=== PATIENT | male | born 1995 | race African-American/Black ===

== ENCOUNTER 2018-01-29 15:58 | Observation (INO) ==
--- NOTE | 2018-01-29 16:09 | Emergency Department Note ---
Disposition Clinical Impression: Auditory hallucinations, Medical clearance for psychiatric admission Disposition: Admitted As Inpatient Condition: Fair Referrals: NONE,PCP [Primary Care Provider] - Forms: ED Satisfaction Letter Time of Disposition: 20:26 Psych HPI - General Chief Complaint: ED Psychiatric Symptoms Stated Complaint: SI Time Seen by Provider: 01/29/18 16:00 Source: patient Mode of arrival: ambulatory Limitations: no limitations Nursing Notes Reviewed: Yes Vital Signs Reviewed: Yes - History of Present Illness HPI Narrative: 22-year-old male with history of ADHD on Adderall, [place] the emergency department with complaint of visual, auditory hallucinations. No command hallucinations. The patient denies any suicidal or homicidal ideations at this time. The patient states that he has been out of his medications for months now. The patient is very worried and wants to get evaluated. The patient does have a previous psychiatric admission. Denies any other complaints at this time. Resting comfortably in the room. - Related Data Allergies Allergy/AdvReac Type Severity Reaction Status Date / Time No Known Allergies Allergy Verified 01/29/18 16:04 All systems ED: reviewed and negative except as stated. Constitutional: Denies: fever, chills ENT ED: Denies: congestion Cardiovascular: Denies: chest pain Respiratory: Denies: dyspnea Gastrointestinal: Denies: abdominal pain Genitourinary: Denies: urgency Musculoskeletal: Denies: back pain Integumentary: Denies: rash Neurological: Denies: headache Psychiatric: Reports: anxiety, auditory hallucinations, visual hallucinations. Denies: depression, suicidal thoughts, homicidal thoughts Past Medical History - Past Medical History Attestation: Yes The following information was validated with the patient. Source: patient Medical history: Reports: no medical history Surgical history: Reports: non-contributory Psychiatric history: Reports: ADHD, previous psychiatric hospitalization - Social History Smoking Status: Current every day smoker Alcohol use: Reports: none Drug use: Reports: none Physical Exam - General Limitations: no limitations General appearance: alert, in no apparent distress - Head Head exam: atraumatic, normocephalic, normal inspection - Eye Eye exam: Present: normal appearance, PERRL, EOMI - ENT ENT exam: normal exam, normal oropharynx, mucous membranes moist - Neck Neck exam: Present: normal inspection, full ROM, trachea midline - Chest Chest inspection: Present: normal inspection, symmetric chest wall rise - Respiratory Respiratory exam: Present: normal lung sounds bilaterally - Cardiovascular Cardiovascular exam: Present: regular rate, normal rhythm, normal heart sounds - Abdominal Exam Abdominal exam: Present: soft, Non-Tender - Extremities Exam Extremities exam: Present: normal inspection, full ROM. Absent: tenderness, pedal edema - Neurological Exam Neurological exam: Present: alert, oriented X3 - Skin Skin exam: Present: warm, dry, intact, normal color Course - Reevaluation(s) Reevaluation #1: 1A notified and will see patient. Time: 17:06 Vital Signs Temperature 98.3 F 01/29/18 16:00 Pulse Rate 90 01/29/18 16:00 Respiratory Rate 16 01/29/18 16:00 Blood Pressure 135/86 01/29/18 16:00 O2 Sat by Pulse Oximetry 99 01/29/18 16:00 Temperature 98.3 F 01/29/18 16:00 Pulse Rate 85 01/29/18 19:27 Respiratory Rate 16 01/29/18 19:27 Blood Pressure 133/87 01/29/18 19:27 O2 Sat by Pulse Oximetry 100 01/29/18 19:27 Oxygen Delivery Oxygen Delivery Room Air Psych - MDM Narrative Medical decision making narrative: Patient was medically cleared at this time. One a will be admitting the patient to the hospital for further care and workup. Patient made aware and agrees to plan. - Lab Data Result diagrams: 01/29/18 16:29 01/29/18 16:29 Lab Results 01/29/18 01/29/18 01/29/18 Range/Units 16:16 16:16 16:29 WBC 6.6 (4.3-11.1) K/mcL RBC 5.36 (4.19-5.50) M/mcL Hgb 15.6 (12.9-16.9) g/dL Hct 46.1 (37.5-50.1) % MCV 86.0 (83.0-100.0) fL MCH 29.1 (28.0-33.3) pg MCHC 33.8 (31.6-35.5) g/dL RDW 12.9 (11.5-14.5) % Plt Count 261 (140-400) K/mcL MPV 9.2 L (9.4-12.4) fL Immature Gran % 0.2 (0-4) % Seg Neutrophils % 47.6 % Lymphocytes % 39.9 % Monocytes % 8.2 % Eosinophils % 3.0 % Basophils % 1.1 % Neutrophils # 3.1 (1.6-8.9) K/mcL Lymphocytes # 2.6 (0.6-4.6) K/mcL Monocytes # 0.5 (0.0-1.3) K/mcL Eosinophils # 0.2 (0.0-0.6) K/mcL Basophils # 0.1 (0.0-0.2) K/mcL Sodium (136-145) mEq/L Potassium (3.5-5.1) mEq/L Chloride (98-107) mEq/L Carbon Dioxide (23-29) mEq/L BUN (6-20) mg/dL Creatinine (0.70-1.30) mg/dL Est GFR ( Amer) (> 60) Est GFR (Non-Af Amer) (> 60) BUN/Creatinine Ratio (6-26) Glucose (70-105) mg/dL Calculated Osmolality (280-300) Calcium (8.6-10.3) mg/dL Urine Color Yellow (Yellow) Urine Clarity Clear (Clear) Urine pH 6.0 (5.0-8.0) pH Units Ur Specific [place] 1.020 (1.010-1.025) Urine Protein Negative (Neg-Trace) mg/dL Urine Glucose (UA) Normal (Normal) mg/dL Urine Ketones Trace H (Negative) mg/dL Urine Blood Negative (Negative) Urine Nitrite Negative (Negative) Urine Bilirubin Negative (Negative) Urine Urobilinogen Normal (Normal) mg/dL Ur Leukocyte Esterase Negative (Negative) Salicylates (15.0-30.0) mg/dL Urine Opiates Screen Negative (Qxfjic=090) ng/mL Acetaminophen (10-20) mcg/mL Ur Barbiturates Screen Negative (Cjtvjc=233) ng/mL Ur Phencyclidine Scrn Negative (Cutoff=25) ng/mL Ur Amphetamines Screen Negative (Fqdrms=3569) ng/mL U Benzodiazepines Scrn Negative (Djqlag=813) ng/mL Urine Cocaine Screen Negative (Cutoff= 300) ng/mL U Marijuana (THC) Screen Negative (Cutoff = 50) ng/mL Ethyl Alcohol (Less than 10) mg/dL 01/29/18 01/29/18 Range/Units 16:29 19:02 WBC (4.3-11.1) K/mcL RBC (4.19-5.50) M/mcL Hgb (12.9-16.9) g/dL Hct (37.5-50.1) % MCV (83.0-100.0) fL MCH (28.0-33.3) pg MCHC (31.6-35.5) g/dL RDW (11.5-14.5) % Plt Count (140-400) K/mcL MPV (9.4-12.4) fL Immature Gran % (0-4) % Seg Neutrophils % % Lymphocytes % % Monocytes % % Eosinophils % % Basophils % % Neutrophils # (1.6-8.9) K/mcL Lymphocytes # (0.6-4.6) K/mcL Monocytes # (0.0-1.3) K/mcL Eosinophils # (0.0-0.6) K/mcL Basophils # (0.0-0.2) K/mcL Sodium 140 (136-145) mEq/L Potassium 3.5 (3.5-5.1) mEq/L Chloride 108 H (98-107) mEq/L Carbon Dioxide 27 (23-29) mEq/L BUN 10 (6-20) mg/dL Creatinine 1.11 (0.70-1.30) mg/dL Est GFR ( Amer) > 60 (> 60) Est GFR (Non-Af Amer) > 60 (> 60) BUN/Creatinine Ratio 9 (6-26) Glucose 107 H (70-105) mg/dL Calculated Osmolality 290 (280-300) Calcium 9.0 (8.6-10.3) mg/dL Urine Color (Yellow) Urine Clarity (Clear) Urine pH (5.0-8.0) pH Units Ur Specific [place] (1.010-1.025) Urine Protein (Neg-Trace) mg/dL Urine Glucose (UA) (Normal) mg/dL Urine Ketones (Negative) mg/dL Urine Blood (Negative) Urine Nitrite (Negative) Urine Bilirubin (Negative) Urine Urobilinogen (Normal) mg/dL Ur Leukocyte Esterase (Negative) Salicylates < 10.0 L (15.0-30.0) mg/dL Urine Opiates Screen Negative (Xrlybs=802) ng/mL Acetaminophen < 10 L (10-20) mcg/mL Ur Barbiturates Screen Negative (Ltfbhp=041) ng/mL Ur Phencyclidine Scrn Negative (Cutoff=25) ng/mL Ur Amphetamines Screen Negative (Wwtbcm=4782) ng/mL U Benzodiazepines Scrn Negative (Pwiufr=723) ng/mL Urine Cocaine Screen Negative (Cutoff= 300) ng/mL U Marijuana (THC) Screen Negative (Cutoff = 50) ng/mL Ethyl Alcohol < 10 (Less than 10) mg/dL Psychiatric Medical Clearance - Medical Clearance Checklist Medical History: Auditory hallucinations (Acute) No Social History Section defined Current Vitals: Last Vital Signs Temp 98.3 F 01/29/18 16:00 Pulse 85 01/29/18 19:27 Resp 16 01/29/18 19:27 BP 133/87 01/29/18 19:27 Pulse Ox 100 01/29/18 19:27 Psychiatric Lab Panel: Drug Levels and Toxicity 01/29/18 01/29/18 01/29/18 16:16 16:29 19:02 Urine Opiates Screen Negative Negative Acetaminophen < 10 L Ur Barbiturates Screen Negative Negative Ur Phencyclidine Scrn Negative Negative Ur Amphetamines Screen Negative Negative U Benzodiazepines Scrn Negative Negative Urine Cocaine Screen Negative Negative U Marijuana (THC) Screen Negative Negative Ethyl Alcohol < 10 Abnormal Labs: Abnormal lab results MPV 9.2 fL (9.4-12.4) L 01/29/18 16:29 Chloride 108 mEq/L (98-107) H 01/29/18 16:29 Glucose 107 mg/dL (70-105) H 01/29/18 16:29 Urine Ketones Trace mg/dL (Negative) H 01/29/18 16:16 Salicylates < 10.0 mg/dL (15.0-30.0) L 01/29/18 16:29 Acetaminophen < 10 mcg/mL (10-20) L 01/29/18 16:29 Statement of Medical Clearance: I have evaluated the patient, reviewed diagnostic information, and certify that the patient's medical condition is sufficiently stable that transfer to the psychiatric unit does not pose a significant risk of deterioration.
[2018-01-29 16:35] LABS: Bilirubin,Urine Negative (Negative); Blood,Urine Negative (Negative); Clarity,Urine Clear (Clear); Color,Urine Yellow (Yellow); Glucose,Urine (UA) Normal (Normal); Ketones,Urine Trace mg/dL (Negative); Leukocyte Esterase,Urine Negative (Negative); Nitrite,Urine Negative (Negative); Protein,Urine Negative (Neg-Trace); Urobilinogen,Urine Normal (Normal)
[2018-01-29 16:42] LABS: Basophils # 0.1 K/mcL (0.0-0.2); Basophils % 1.1 %; Eosinophils # 0.2 K/mcL (0.0-0.6); Hematocrit 46.1 % (37.5-50.1); Hemoglobin 15.6 g/dL (12.9-16.9); Immature Granulocytes % 0.2 % (0-4); Lymphocytes # 2.6 K/mcL (0.6-4.6); Lymphocytes % 39.9 %; Mean Corpuscular HGB Conc 33.8 g/dL (31.6-35.5); Mean Corpuscular Hemoglobin 29.1 pg (28.0-33.3); Mean Platelet Volume 9.2 fL (9.4-12.4); Monocytes # 0.5 K/mcL (0.0-1.3); Monocytes % 8.2 %; Neutrophils # 3.1 K/mcL (1.6-8.9); Platelet Count 261 K/mcL (140-400); Red Blood Count 5.36 M/mcL (4.19-5.50); Red Cell Distribution Width 12.9 % (11.5-14.5); Segmented Neutrophils % 47.6 %
[2018-01-29 16:44] LABS: Amphetamine Screen,Urine Negative ng/mL (Cutoff=1000); Barbiturate Screen,Urine Negative ng/mL (Cutoff=200); Benzodiazepines Screen,Urine Negative ng/mL (Cutoff=200); Cannabinoid Screen,Urine Negative ng/mL (Cutoff = 50); Cocaine Screen,Urine Negative ng/mL (Cutoff= 300); Opiate Screen,Urine Negative ng/mL (Cutoff=300); Phencyclidine Screen,Urine Negative ng/mL (Cutoff=25)
[2018-01-29 17:02] LABS: Acetaminophen < 10 mcg/mL (10-20); BUN/Creatinine Ratio 9 (6-26); Blood Urea Nitrogen 10 mg/dL (6-20); Carbon Dioxide 27 mEq/L (23-29); Chloride 108 mEq/L (98-107); Ethanol < 10 mg/dL (Less than 10); Glucose 107 mg/dL (70-105); Osmolality,Calculated 290 (280-300); Potassium 3.5 mEq/L (3.5-5.1); Salicylate < 10.0 mg/dL (15.0-30.0); Sodium 140 mEq/L (136-145); eGFR For African Americans > 60 (> 60); eGFR For Non-African Americans > 60 (> 60)
--- NOTE | 2018-01-29 19:00 | Emergency Department Note ---
Disposition Clinical Impression: Auditory hallucinations Disposition: Still a Patient Condition: Fair Referrals: NONE,PCP [Primary Care Provider] - Forms: ED Satisfaction Letter Psych HPI - General Chief Complaint: ED Psychiatric Symptoms Stated Complaint: SI Time Seen by Provider: 01/29/18 16:00 Source: patient Mode of arrival: ambulatory Limitations: no limitations Nursing Notes Reviewed: Yes Vital Signs Reviewed: Yes - Related Data Allergies Allergy/AdvReac Type Severity Reaction Status Date / Time No Known Allergies Allergy Verified 01/29/18 16:04 Constitutional: Denies: fever, chills ENT ED: Denies: congestion Cardiovascular: Denies: chest pain Respiratory: Denies: dyspnea Gastrointestinal: Denies: abdominal pain Genitourinary: Denies: urgency Musculoskeletal: Denies: back pain Integumentary: Denies: rash Neurological: Denies: headache Psychiatric: Reports: anxiety, auditory hallucinations, visual hallucinations. Denies: depression, suicidal thoughts, homicidal thoughts Past Medical History - Past Medical History Medical history: Reports: no medical history Surgical history: Reports: non-contributory Psychiatric history: Reports: ADHD, previous psychiatric hospitalization - Social History Smoking Status: Current every day smoker Alcohol use: Reports: none Drug use: Reports: none Physical Exam - General Limitations: no limitations General appearance: alert, in no apparent distress Course Vital Signs Temperature 98.3 F 01/29/18 16:00 Pulse Rate 90 01/29/18 16:00 Respiratory Rate 16 01/29/18 16:00 Blood Pressure 135/86 01/29/18 16:00 O2 Sat by Pulse Oximetry 99 01/29/18 16:00 Temperature 98.3 F 01/29/18 16:00 Pulse Rate 90 01/29/18 16:00 Respiratory Rate 16 01/29/18 16:00 Blood Pressure 135/86 01/29/18 16:00 O2 Sat by Pulse Oximetry 99 01/29/18 16:00 Oxygen Delivery Oxygen Delivery Room Air Psych - Lab Data Result diagrams: 01/29/18 16:29 01/29/18 16:29 Lab Results 01/29/18 01/29/18 01/29/18 Range/Units 16:16 16:16 16:29 WBC 6.6 (4.3-11.1) K/mcL RBC 5.36 (4.19-5.50) M/mcL Hgb 15.6 (12.9-16.9) g/dL Hct 46.1 (37.5-50.1) % MCV 86.0 (83.0-100.0) fL MCH 29.1 (28.0-33.3) pg MCHC 33.8 (31.6-35.5) g/dL RDW 12.9 (11.5-14.5) % Plt Count 261 (140-400) K/mcL MPV 9.2 L (9.4-12.4) fL Immature Gran % 0.2 (0-4) % Seg Neutrophils % 47.6 % Lymphocytes % 39.9 % Monocytes % 8.2 % Eosinophils % 3.0 % Basophils % 1.1 % Neutrophils # 3.1 (1.6-8.9) K/mcL Lymphocytes # 2.6 (0.6-4.6) K/mcL Monocytes # 0.5 (0.0-1.3) K/mcL Eosinophils # 0.2 (0.0-0.6) K/mcL Basophils # 0.1 (0.0-0.2) K/mcL Sodium (136-145) mEq/L Potassium (3.5-5.1) mEq/L Chloride (98-107) mEq/L Carbon Dioxide (23-29) mEq/L BUN (6-20) mg/dL Creatinine (0.70-1.30) mg/dL Est GFR ( Amer) (> 60) Est GFR (Non-Af Amer) (> 60) BUN/Creatinine Ratio (6-26) Glucose (70-105) mg/dL Calculated Osmolality (280-300) Calcium (8.6-10.3) mg/dL Urine Color Yellow (Yellow) Urine Clarity Clear (Clear) Urine pH 6.0 (5.0-8.0) pH Units Ur Specific [place] 1.020 (1.010-1.025) Urine Protein Negative (Neg-Trace) mg/dL Urine Glucose (UA) Normal (Normal) mg/dL Urine Ketones Trace H (Negative) mg/dL Urine Blood Negative (Negative) Urine Nitrite Negative (Negative) Urine Bilirubin Negative (Negative) Urine Urobilinogen Normal (Normal) mg/dL Ur Leukocyte Esterase Negative (Negative) Salicylates (15.0-30.0) mg/dL Urine Opiates Screen Negative (Azasqj=799) ng/mL Acetaminophen (10-20) mcg/mL Ur Barbiturates Screen Negative (Uveryz=624) ng/mL Ur Phencyclidine Scrn Negative (Cutoff=25) ng/mL Ur Amphetamines Screen Negative (Wmilpu=2307) ng/mL U Benzodiazepines Scrn Negative (Kftcyb=194) ng/mL Urine Cocaine Screen Negative (Cutoff= 300) ng/mL U Marijuana (THC) Screen Negative (Cutoff = 50) ng/mL Ethyl Alcohol (Less than 10) mg/dL 01/29/18 Range/Units 16:29 WBC (4.3-11.1) K/mcL RBC (4.19-5.50) M/mcL Hgb (12.9-16.9) g/dL Hct (37.5-50.1) % MCV (83.0-100.0) fL MCH (28.0-33.3) pg MCHC (31.6-35.5) g/dL RDW (11.5-14.5) % Plt Count (140-400) K/mcL MPV (9.4-12.4) fL Immature Gran % (0-4) % Seg Neutrophils % % Lymphocytes % % Monocytes % % Eosinophils % % Basophils % % Neutrophils # (1.6-8.9) K/mcL Lymphocytes # (0.6-4.6) K/mcL Monocytes # (0.0-1.3) K/mcL Eosinophils # (0.0-0.6) K/mcL Basophils # (0.0-0.2) K/mcL Sodium 140 (136-145) mEq/L Potassium 3.5 (3.5-5.1) mEq/L Chloride 108 H (98-107) mEq/L Carbon Dioxide 27 (23-29) mEq/L BUN 10 (6-20) mg/dL Creatinine 1.11 (0.70-1.30) mg/dL Est GFR ( Amer) > 60 (> 60) Est GFR (Non-Af Amer) > 60 (> 60) BUN/Creatinine Ratio 9 (6-26) Glucose 107 H (70-105) mg/dL Calculated Osmolality 290 (280-300) Calcium 9.0 (8.6-10.3) mg/dL Urine Color (Yellow) Urine Clarity (Clear) Urine pH (5.0-8.0) pH Units Ur Specific [place] (1.010-1.025) Urine Protein (Neg-Trace) mg/dL Urine Glucose (UA) (Normal) mg/dL Urine Ketones (Negative) mg/dL Urine Blood (Negative) Urine Nitrite (Negative) Urine Bilirubin (Negative) Urine Urobilinogen (Normal) mg/dL Ur Leukocyte Esterase (Negative) Salicylates < 10.0 L (15.0-30.0) mg/dL Urine Opiates Screen (Igmjml=590) ng/mL Acetaminophen < 10 L (10-20) mcg/mL Ur Barbiturates Screen (Suenxw=088) ng/mL Ur Phencyclidine Scrn (Cutoff=25) ng/mL Ur Amphetamines Screen (Pzkmhg=1675) ng/mL U Benzodiazepines Scrn (Qdbavm=059) ng/mL Urine Cocaine Screen (Cutoff= 300) ng/mL U Marijuana (THC) Screen (Cutoff = 50) ng/mL Ethyl Alcohol < 10 (Less than 10) mg/dL Psychiatric Medical Clearance - Medical Clearance Checklist Medical History: No Social History Section defined Current Vitals: Last Vital Signs Temp 98.3 F 01/29/18 16:00 Pulse 90 01/29/18 16:00 Resp 16 01/29/18 16:00 BP 135/86 01/29/18 16:00 Pulse Ox 99 01/29/18 16:00 Psychiatric Lab Panel: Drug Levels and Toxicity 01/29/18 01/29/18 16:16 16:29 Urine Opiates Screen Negative Acetaminophen < 10 L Ur Barbiturates Screen Negative Ur Phencyclidine Scrn Negative Ur Amphetamines Screen Negative U Benzodiazepines Scrn Negative Urine Cocaine Screen Negative U Marijuana (THC) Screen Negative Ethyl Alcohol < 10 Abnormal Labs: Abnormal lab results MPV 9.2 fL (9.4-12.4) L 01/29/18 16:29 Chloride 108 mEq/L (98-107) H 01/29/18 16:29 Glucose 107 mg/dL (70-105) H 01/29/18 16:29 Urine Ketones Trace mg/dL (Negative) H 01/29/18 16:16 Salicylates < 10.0 mg/dL (15.0-30.0) L 01/29/18 16:29 Acetaminophen < 10 mcg/mL (10-20) L 01/29/18 16:29 Statement of Medical Clearance: I have evaluated the patient, reviewed diagnostic information, and certify that the patient's medical condition is sufficiently stable that transfer to the psychiatric unit does not pose a significant risk of deterioration. Attestation Statement - Attestation Attestation: I, Matias Lomas, examined this patient and my medical decision-making was reviewed with the INTERIOR MECHANIC/PA/Advanced Practice Nurse/Resident Physician. I agree with the documented findings, disposition and treatment plan as described except to the extent set forth below. 22-year-old male presents emergency department for concerns of audio hallucinations. Patient states he hears a continuous Babel of voices. Patient states the voices are not command in nature. Patient denies visual hallucinations. He denies suicidal or homicidal ideation. Patient states this is occurred in the past for which she needed admission to [facility]. He was discharged with 30 days worth of medications. He has been out of his medications for the past 60 days. Patient was medically cleared and evaluated by 1A.
[2018-01-29 20:09] LABS: Amphetamine Screen,Urine Negative ng/mL (Cutoff=1000); Barbiturate Screen,Urine Negative ng/mL (Cutoff=200); Benzodiazepines Screen,Urine Negative ng/mL (Cutoff=200); Cannabinoid Screen,Urine Negative ng/mL (Cutoff = 50); Cocaine Screen,Urine Negative ng/mL (Cutoff= 300); Opiate Screen,Urine Negative ng/mL (Cutoff=300); Phencyclidine Screen,Urine Negative ng/mL (Cutoff=25)
[2018-01-29] MEDS ORDERED: Haloperidol Lactate 5 MG/ML VIAL IM PRN (22:04)
[2018-01-29] MEDS ORDERED: *HR* LORazepam 1 MG TABLET PO PRN (22:04)
[2018-01-29] MEDS ORDERED: traZODone 50 MG TABLET PO PRN (22:04)
[2018-01-29] MEDS ORDERED: *HR* LORazepam 2 MG/ML VIAL IM PRN (22:04)
[2018-01-29] MEDS ORDERED: hydrOXYzine pamoate 25 MG CAPSULE PO PRN (22:04)
[2018-01-29] MEDS ORDERED: Mag Hydrox/Al Hydrox/Simeth 30 ML UDC PO PRN (22:04)
[2018-01-29] MEDS ORDERED: MOM Conc 10 ML UD.LIQ PO PRN (22:04)
[2018-01-29] MEDS ORDERED: Acetaminophen 325 MG TABLET PO PRN (22:04)
[2018-01-30] MEDS: Nicotine 2 MG GUM BC PRN ×4 (08:22→20:25)
--- NOTE | 2018-01-30 11:59 | Psychiatry History & Physical ---
Date of Encounter: 01/30/18 Time of Encounter: 11:00 History of Present Illness Patient Stated Chief Complaint: I wanted back on my meds Medicare Admission Attestation: For traditional Medicare patients the provided hospital inpatient services are reasonable and necessary and in the case of services not specified as inpatient -only under 42 CFR 419.22 (n), that they are appropriately provided as inpatient services in accordance 42 CFR 412.3. For Critical Access Hospital the patient may reasonably be expected to be discharged or transferred to a hospital within 96 hours after admission to the Critical Access Hospital. Admitted From: Emergency Dept Plans for Post Hospital Care: Home History of Present Illness: Mr. Rivers is a 22 year old male patient likes to be called "CANDIS". Chief complaints: I keep having these things are not comprehending. I was diagnosed with ADD when I was a but was only treated since age 21. The patient reports he started hearing voices since age 20. History of present illness: The patient had a relatively normal childhood and adolescent life and development. He reports no significant abuse or psychiatric problems. At age 8 he was tested for attention deficit disorder he can recall taking a two-hour test and was told that he had attention deficit disorder but was not treated. . The patient never had any tics or Rhodes vocal outbursts and does not report significant problems in the classroom. Nonetheless he was able to progress until about 12th grade. At age 20 he was sitting on his porch about 10:00 in the evening and he started hearing a voice. He cannot identify whose voice it is but is been treated in several settings and was treated with Risperdal. Never thought the risperidone help for his voices and he felt like it was like a cotton ball. Meaning that it did not do anything. The patient reports the Adderall works for his voices. When he first started these were voices questioning him not in particular. At other times they would be outside his head. He reports that he still hearing the voices. He has no thought insertion or thought withdrawal sometimes has thought broadcasting. He has no delusions or passively no ideas of reference. The patient's depressive symptoms include medium slow self-esteem medium decreased interest some guilt. He had a physical concern and he stopped eating me although he is still on milk cheese and anxious other forms protein. His energy is good. His concentration is poor with memory problems. His father tells him sometimes cannot comprehend things. His appetite is okay. Ball but is not getting much exercise. His sleep is good. He notes no suicidal or homicidal ideation although he did have upper burst and expressed some things. The patient did not have significant carolina with disturbance of euphoria or irritability but does have distractibility flight of ideas not thoughtlessness. The patient has some perfectionism and once himself to get better and to do his best but denies cleaning counting checking collecting and confessing. Past psychiatric history. The patient first presented to a local mental health and was seen by Alicia. Wright. He was started on Lexapro and Adderall. A review of the state pharmacy report shows a hospitalization in October 2017 when he went to [facility] for 3 days was discharged on Adderall ER 30 mg per day. 2016 he went to [place] for 7 days and was discharged on Adderall ER 20 mg per day. The patient was hospitalized in October or November at [facility] in [place] while he was there for [facility] in 2016. There he was also discharged on Adderall.. At times the auditory hallucinations would be of concern but the patient's primary reason for presenting is to get started back on Adderall and Lexapro. Past medical history: Surgeries none illnesses none he reports having PPP up penile growth that is benign. Allergies NKDA. Previous meds as above. Family history: A maternal grandfather had anxiety disorder is negative for alcohol negative for drugs negative for suicide positive for ADHD in his younger sister Shireen she is on Adderall. Social history. The patient was raised in [place]. He completed up to the 12th grade and then he decided that he would try to get his diploma through level of as he only had one quarter to make. He reports that he is planning on taking his drawings to [place] [employer]. He is worked at [employer] at [employer] at [employer] at [employer] and some temporary service. Although at age 22 he does not have his driving license yet. The patient plans live with a friend in [place] reports no girlfriend or romantic attachments at this time. Review of systems is as listed but includes racing thoughts difficulty with concentration. And is negative for most other physical concerns. During the interview the patient was fidgeting occasionally banging his heel on the floor moving his fingers but no tics or vocalizations were observed Past Med Surg Social Fam HX - Past Medical History Source: patient Medical history: no medical history - Past Psychiatric History Psychiatric history: Reports: ADHD, previous psychiatric hospitalization Family psychiatric history: Yes Family History of Suicide: None - Past Surgical History Surgical History: no surgical history, non-contributory - Social History Smoking Status: Unknown if ever smoked Smokeless Tobacco Status: No Alcohol use: none Drug use: none Occupational status: previously employed, student Current living situation: Home - Independent, With Family Activity Level: Independent ambulation Recent Out of Country Travel Within the Last 8 Weeks: No Exposure or Possible Exposure to Illness During Travel: No Medications & Allergies Dextroamphetamine/Amphetamine [Adderall Xr 30 mg Capsule] 30 mg PO DAILY [History] 3 Allergy/AdvReac Type Severity Reaction Status Date / Time No Known Allergies Allergy Verified 01/29/18 16:04 Review of Systems Constitutional: Denies: fever, chills, weakness, weight change Eyes: Denies: eye pain, vision change Ears, Nose, Throat: Denies: ear pain, throat pain, dental pain, hearing loss, congestion Cardiovascular: Denies: chest pain, palpitations, dyspnea on exertion Respiratory: Denies: cough, dyspnea, wheezes Gastrointestinal: Denies: abdominal pain, nausea, vomiting, diarrhea, constipation Genitourinary male: Denies: urgency, dysuria, frequency, genital lesions Musculoskeletal: Denies: joint swelling, joint pain Integumentary: Denies: rash, lesions, pruritus Neurological: Denies: headache, weakness, numbness, memory loss Psychiatric: Reports: memory loss, difficulty concentrating Endocrine: Denies: fatigue, heat or cold intolerance Hematologic/Lymphatic: Denies: easy bruising, lymphadenopathy Allergic/Immunologic: Denies: urticaria, itchy eyes Exam - HEENT Head exam IM: Present: atraumatic Eye exam IM: Present: EOMI, normal appearance, PERRL ENT exam IM: Present: normal exam - Neurological Neurological exam: Present: CN II-XII intact, no focal deficits, strengths equal and symetr throughout - Respiratory Respiratory exam IM: Present: CTAB - GI/Abdominal GI/Abdominal exam IM: Present: normal bowel sounds, soft. Absent: tenderness - Extremities Extremities exam IM: Present: full ROM - Skin Skin exam IM: Present: dry, warm - Constitutional Vitals: Temp Pulse Resp BP Pulse Ox 98.0 F 99 16 118/86 100 01/30/18 09:00 01/30/18 09:00 01/30/18 09:00 01/30/18 09:00 01/29/18 19:27 General appearance: age & developmentally appropriate, well-groomed, well- nourished - Musculoskeletal Gait: normal Station: relaxed Strength & Tone: normal for patient - Psychiatric Patient Orientation: Yes Person, Yes Time, Yes Place Level of alertness: Alert Behavior: calm, cooperative Psychomotor activity: Repetitive movements Eye Contact: Maintains Eye Contact Mood Description: Anxious Affect description: congruent with mood, full range Speech Volume: Normal Speech pattern: normal rate, normal rhythm, normal tone, fluent, spontaneous Language & Vocabulary: consistent with education Thought Process: Linear, Goal Oriented Thought Content: No Suicidal ideation, No Homicidal ideation, No Overt delusions , Yes Obsessive thoughts, Yes Thought broadcasting Perceptual Disturbances: No Auditory hallucinations, No Visual hallucinations Attention Span Ability: Capable of Focused Attention Memory Description: Grossly Intact Patient Reliability: Reliable Historian Fund of knowledge: Yes abstraction ability, Yes average, Yes aware of current events Intelligence Estimate: Average Judgment: Fair Insight: Partial Results - Labs Labs: Laboratory Last Values WBC 6.6 K/mcL (4.3-11.1) 01/29/18 16:29 RBC 5.36 M/mcL (4.19-5.50) 01/29/18 16:29 Hgb 15.6 g/dL (12.9-16.9) 01/29/18 16:29 Hct 46.1 % (37.5-50.1) 01/29/18 16:29 MCV 86.0 fL (83.0-100.0) 01/29/18 16:29 MCH 29.1 pg (28.0-33.3) 01/29/18 16:29 MCHC 33.8 g/dL (31.6-35.5) 01/29/18 16:29 RDW 12.9 % (11.5-14.5) 01/29/18 16:29 Plt Count 261 K/mcL (140-400) 01/29/18 16:29 MPV 9.2 fL (9.4-12.4) L 01/29/18 16:29 Immature Gran % 0.2 % (0-4) 01/29/18 16: Seg Neutrophils % 47.6 % 01/29/18 16: Lymphocytes % 39.9 % 01/29/18 16: Monocytes % 8.2 % 01/29/18 16: Eosinophils % 3.0 % 01/29/18 16: Basophils % 1.1 % 01/29/18 16: Neutrophils # 3.1 K/mcL (1.6-8.9) 01/29/18 16: Lymphocytes # 2.6 K/mcL (0.6-4.6) 01/29/18 16: Monocytes # 0.5 K/mcL (0.0-1.3) 01/29/18 16: Eosinophils # 0.2 K/mcL (0.0-0.6) 01/29/18 16: Basophils # 0.1 K/mcL (0.0-0.2) 01/29/18 16:29 Sodium 140 mEq/L (136-145) 01/29/18 16:29 Potassium 3.5 mEq/L (3.5-5.1) 01/29/18 16: Chloride 108 mEq/L (98-107) H 01/29/18 16:29 Carbon Dioxide 27 mEq/L (23-29) 01/29/18 16:29 BUN 10 mg/dL (6-20) 01/29/18 16:29 Creatinine 1.11 mg/dL (0.70-1.30) 01/29/18 16:29 Est GFR ( Amer) > 60 (> 60) 01/29/18 16:29 Est GFR (Non-Af Amer) > 60 (> 60) 01/29/18 16:29 BUN/Creatinine Ratio 9 (6-26) 01/29/18 16:29 Glucose 107 mg/dL (70-105) H 01/29/18 16:29 Calculated Osmolality 290 (280-300) 01/29/18 16:29 Calcium 9.0 mg/dL (8.6-10.3) 01/29/18 16:29 Urine Color Yellow (Yellow) 01/29/18 16:16 Urine Clarity Clear (Clear) 01/29/18 16:16 Urine pH 6.0 pH Units (5.0-8.0) 01/29/18 16:16 Ur Specific [place] 1.020 (1.010-1.025) 01/29/18 16:16 Urine Protein Negative mg/dL (Neg-Trace) 01/29/18 16:16 Urine Glucose (UA) Normal mg/dL (Normal) 01/29/18 16:16 Urine Ketones Trace mg/dL (Negative) H 01/29/18 16:16 Urine Blood Negative (Negative) 01/29/18 16:16 Urine Nitrite Negative (Negative) 01/29/18 16:16 Urine Bilirubin Negative (Negative) 01/29/18 16:16 Urine Urobilinogen Normal mg/dL (Normal) 01/29/18 16:16 Ur Leukocyte Esterase Negative (Negative) 01/29/18 16:16 Salicylates < 10.0 mg/dL (15.0-30.0) L 01/29/18 16:29 Urine Opiates Screen Negative ng/mL (Sjabtf=875) 01/29/18 19:02 Acetaminophen < 10 mcg/mL (10-20) L 01/29/18 16:29 Ur Barbiturates Screen Negative ng/mL (Fcelct=829) 01/29/18 19:02 Ur Phencyclidine Scrn Negative ng/mL (Cutoff=25) 01/29/18 19:02 Ur Amphetamines Screen Negative ng/mL (Xvupwq=0563) 01/29/18 19:02 U Benzodiazepines Scrn Negative ng/mL (Ueusoy=102) 01/29/18 19:02 Urine Cocaine Screen Negative ng/mL (Cutoff= 300) 01/29/18 19:02 U Marijuana (THC) Screen Negative ng/mL (Cutoff = 50) 01/29/18 19:02 Ethyl Alcohol < 10 mg/dL (Less than 10) 01/29/18 16:29 Assessment and Plan (1) Attention-deficit hyperactivity disorder, combined type Current visit: Yes Status: Acute Plan: Admit inpatient for safety and stabilization, Close observation Risks, benefits, side effects, alternatives discussed w/pt: Yes Patient agreeable to treatment: Yes Plans for Post Hospital Care: Home Estimated Length of Stay ( Days): 2 (2) Obsession Current visit: Yes Status: Chronic Plan: Monitor sleep, Monitor appetite Risks, benefits, side effects, alternatives discussed w/pt: Yes Patient agreeable to treatment: Yes Plans for Post Hospital Care: Home (3) Auditory hallucinations Current visit: Yes Status: Ruled-out Risks, benefits, side effects, alternatives discussed w/pt: Yes Patient agreeable to treatment: Yes Plans for Post Hospital Care: Home
[2018-01-31] MEDS ORDERED: Methylphenidate HCl 10 MG TABLET PO SCH (08:00)
[2018-01-31 08:21] VITALS: BP 110/74
[2018-01-31] MEDS ORDERED: ARIPiprazole 2 MG TABLET PO SCH (09:00)
--- NOTE | 2018-01-31 09:51 | Discharge Summary ---
Date of Encounter: 01/31/18 Time of Encounter: 09:30 Diagnosis - Discharge Diagnosis (1) Attention-deficit hyperactivity disorder, combined type Status: Acute (2) Obsession Status: Chronic (3) Auditory hallucinations Status: Ruled-out Medications - Discharge Medications Prescriptions: ARIPiprazole [Abilify] 2 mg PO DAILY 30 Days #30 tablet Escitalopram [Lexapro] 5 mg PO DAILY 30 Days #30 tablet Dextroamphetamine/Amphetamine [Adderall Xr 30 mg Capsule] 30 mg PO DAILY [History] ARIPiprazole [Abilify] 2 mg PO DAILY 30 Days #30 tablet 01/31/18 [Rx] Escitalopram [Lexapro] 5 mg PO DAILY 30 Days #30 tablet 01/31/18 [Rx] 3 Allergy/AdvReac Type Severity Reaction Status Date / Time No Known Allergies Allergy Verified 01/29/18 16:04 Provider Date of admission: 01/29/18 20:30 Primary care physician: PCP NONE Discharging clinician: Horace Bravo Psychiatry Exam - Constitutional Vitals: Temp Pulse Resp BP Pulse Ox 98.2 F 81 16 110/74 100 01/31/18 08:20 01/31/18 08:20 01/31/18 08:20 01/31/18 08:20 01/29/18 19:27 General appearance: age & developmentally appropriate, well-groomed, well- nourished - Musculoskeletal Gait: normal Station: relaxed Strength & Tone: normal for patient - Psychiatric Patient Orientation: Yes Person, Yes Time, Yes Place Level of alertness: Alert Behavior: calm, cooperative Psychomotor activity: Normal Eye Contact: Maintains Eye Contact Mood Description: Euthymic/stable Affect description: congruent with mood, full range Speech Volume: Normal Speech pattern: normal rate, normal rhythm, normal tone, fluent, spontaneous Language & Vocabulary: consistent with education Thought Process: Linear, Goal Oriented Thought Content: No Suicidal ideation, No Homicidal ideation, No Overt delusions , Yes Obsessive thoughts Perceptual Disturbances: Yes Auditory hallucinations, No Visual hallucinations Attention Span Ability: Capable of Focused Attention Memory Description: Grossly Intact Patient Reliability: Reliable Historian Fund of knowledge: Yes abstraction ability, Yes aware of current events Intelligence Estimate: Average Judgment: Fair Insight: Partial Hospital Course Hospital course: Mr. Rivers is a 22 year old male Patient was admitted to the unit. The patient been diagnosed with attention deficit disorder previously. The patient requested to go back on his medicines. State pharmacy report was checked. His requested medicine was not available in the formulary so he tolerated a substitute stimulant medicine area The patient made arrangements to return home and he planned to live on was sent to [place] and follow up [facility]. During during Hospital stay the patient did not evidence significant disturbance of mood and while the patient was bothered with this he did not have first rank schneiderian symptoms and did not have negative symptoms of psychosis. Patient did have some obsessional thinking. In the voices seem to reflect this theme. Nonetheless the patient was started on a trial of 2 mg of aripiprazole as he failed to tolerate or improve with risperidone in the past. Further diagnostic clarification may be helpful in counseling could help in the patient's academic and career pursuits Time spent discussing smoking cessation with patient: 3 to 10 minutes Does patient wish to continue nicotine replacement upon disc: No - Time Spent with Patient Total time spent providing and/or coordinating discharge services: Less than 30 minutes Assessment and Plan - Patient/Caregiver Discharge Instructions Activity: resume usual activities as tolerated Diet: regular diet - Follow up Plan Follow up with: Primary, [facility] Location [Other] - 02/14/18 8:00 am (The above appointment is with Saurabh Shoemaker for primary health care and medication management services. Please arrive 15 minutes early to complete paperwork. Please bring your insurance card, photo ID and medications in their original bottles. If you do not have insurance, bring proof of income to apply for the sliding fee scale. If you are unable to keep this appointment, 24 hour business notice of cancellation is expected. The above appointment(s) reflects first availability. You may contact the office regularly to check for cancellations that may allow you to be seen sooner.) [facility] [Outside] (To start services, you may walk-in to [facility] at [facility] [place] [place] [id number], Tuesday-Tuesday, from 8:00 am-3:30 pm. When you come to your first appointment, you will be completing paperwork, meeting with a counselor, and developing a treatment plan. You will receive follow- up appointments for on-going services, which could include community support, mental health and substance abuse counseling, groups/partial hospitalization programming, medication assisted treatment, and psychiatric medication management. ) Functional capacity at discharge: independent ambulation Overall status at discharge: Stable Disposition: Home, Self-Care Quality - Multiple Antipsychotics Patient discharged on 2 or more antipsychotic medications: No Procedures - Procedures Procedures: Medication Management, Crisis Stabilization, Supportive Therapy, Group Therapy, Psychoeducational Therapy
[2018-01-31] MEDS: Nicotine 2 MG GUM BC PRN (11:07)
== END 2018-01-31 12:25 | disposition home or self-care (01) ==
LOC: 1ANU 15:58 → EMEROO 15:58 → SUATTDRO 20:30 → 1ANU 20:52
PROVIDERS: ADMIT Psychiatry & Neurology Psychiatry; ATTEND Psychiatry & Neurology Forensic Psychiatry